=== PATIENT | male | born 1965 | race Native Hawaiian/Other Pacific Islander ===

== ENCOUNTER 2016-11-23 10:24 | Outpatient (CLI) | payer OTHER ==
[~2016-11-23 10:24] MED LIST: ASA LOW STR81 MG PO; CLOP75TA2 PO; CLOPIDOGREL75 MG PO; CRESTOR20 MG PO; EQ ASPIRIN325 M1 OR; EQ OMEPRAZOLE20 MG OR; IMDUR60 MG PO; LISI20TA11 PO; METF500T PO; METO25TA4 OR; METO50TA27 PO; METO50TA63 PO; NITROSTAT0.4 MG SL; RANI150T78 PO; RANO500T PO; TOPAMAX25 MG OR; TRAM50TA PO; XODOL OR
[2016-11-23 11:35] LABS: PLATELET COUNT 178 K/uL (142-355)
[2016-11-23 12:07] LABS: SODIUM 134 mmol/L (136-145)
== END 2016-11-23 19:13 | disposition home or self-care (01) ==
LOC: LABW 10:24
PROVIDERS: Internal Medicine
DX: E11.9 Type 2 diabetes mellitus without complications (principal); M25.519 Pain in unspecified shoulder; Z12.5 Encounter for screening for malignant neoplasm of prostate
CPT/HCPCS: 36415; 80053; 80061; 81000; 82043; 82570; 83036; 84153; 84443; 85027

== ENCOUNTER 2017-03-25 11:39 | Outpatient (CLI) | payer OTHER | END 2017-03-25 12:40 | disposition home or self-care (01) | LOC: RAD 11:39 | DX: M54.2 Cervicalgia (principal); M79.602 Pain in left arm; M79.601 Pain in right arm ==

== ENCOUNTER 2017-08-04 08:25 | Outpatient (CLI) | payer OTHER ==
[2017-08-04 08:54] LABS: PLATELET COUNT 177 K/uL (142-355)
[2017-08-04 09:18] LABS: PARTIAL THROMBOPLASTIN TIME 27.2 SECONDS (24.5-33.6)
[2017-08-04 09:25] LABS: POTASSIUM 3.9 mmol/L (3.6-5.2); SODIUM 134 mmol/L (136-145)
== END 2017-08-04 23:34 | disposition home or self-care (01) ==
LOC: LABW 08:25
PROVIDERS: Internal Medicine
DX: E11.9 Type 2 diabetes mellitus without complications (principal); Z01.818 Encounter for other preprocedural examination; Z79.899 Other long term (current) drug therapy
CPT/HCPCS: 36415; 80053; 80061; 81000; 83036; 84443; 85027; 85610; 85730

== ENCOUNTER 2017-08-28 07:41 | Outpatient (CLI) | payer OTHER | END 2017-08-28 20:22 | disposition home or self-care (01) | LOC: CT 07:41 | DX: R06.02 Shortness of breath (principal); R91.1 Solitary pulmonary nodule | CPT/HCPCS: 94664; Q9963 ==

== ENCOUNTER 2017-12-03 22:00 | Emergency (ER) | payer OTHER ==
[~2017-12-03] VITALS: Ht 182.9 cm; Wt 98.6 kg
[2017-12-03] MEDS ORDERED: GABA300C2 PO (22:25)
[2017-12-03] MEDS ORDERED: METFORMIN HCL500 M1 PO (22:25)
[2017-12-03] MEDS ORDERED: ASPIRIN 81 LOW81 MG PO (22:26)
[2017-12-03] MEDS ORDERED: BEVESPI AEROSPH1 AER IN (22:26)
[2017-12-03] MEDS ORDERED: PROAIR HFA IN (22:28)
[2017-12-04 01:52] VITALS: BP 148/60; TEMP 98.3
== END 2017-12-04 01:53 | disposition home or self-care (01) ==
LOC: ED 22:00
DX: L08.89 Other specified local infections of the skin and subcutaneous tissue (principal)
CPT/HCPCS: 99282

== ENCOUNTER 2019-02-20 09:00 | Outpatient (CLI) | payer OTHER ==
[~2019-02-20 09:00] MED LIST changes: +ASPIRIN 81 LOW81 MG PO; +BEVESPI AEROSPH1 AER IN; +GABA300C2 PO; +METFORMIN HCL500 M1 PO; +PROAIR HFA IN
== END 2019-02-20 22:15 | disposition home or self-care (01) ==
LOC: CT 09:00
DX: J44.1 Chronic obstructive pulmonary disease with (acute) exacerbation (principal)

== ENCOUNTER 2019-04-03 09:25 | Outpatient (CLI) | payer OTHER ==
[2019-04-03 09:53] LABS: PLATELET COUNT 181 K/uL (142-355)
[2019-04-03 10:18] LABS: POTASSIUM 3.9 mmol/L (3.6-5.2)
== END 2019-04-03 20:05 | disposition home or self-care (01) ==
LOC: LABW 09:25
PROVIDERS: Internal Medicine
DX: E11.9 Type 2 diabetes mellitus without complications (principal); Z12.5 Encounter for screening for malignant neoplasm of prostate; N40.0 Benign prostatic hyperplasia without lower urinary tract symptoms
CPT/HCPCS: 36415; 80053; 80061; 81000; 82043; 82570; 83036; 84153; 85027

== ENCOUNTER 2019-07-05 08:43 | Outpatient (CLI) | payer OTHER | END 2019-07-05 20:14 | disposition home or self-care (01) | LOC: RESP 08:43 | DX: J43.2 Centrilobular emphysema (principal) ==

== ENCOUNTER 2019-10-03 12:00 | Outpatient (CLI) | payer OTHER ==
[2019-10-03 12:16] LABS: PLATELET COUNT 161 K/uL (142-355)
[2019-10-03 12:31] LABS: POTASSIUM 3.8 mmol/L (3.6-5.2)
== END 2019-10-03 22:45 | disposition home or self-care (01) ==
LOC: LAB 12:00
PROVIDERS: Internal Medicine
DX: E11.9 Type 2 diabetes mellitus without complications (principal); I10 Essential (primary) hypertension
CPT/HCPCS: 80053; 83036; 84154; 84439; 84443; 85027

== ENCOUNTER 2020-01-06 13:20 | Emergency (ER) | payer OTHER ==
[~2020-01-06] VITALS: Ht 182.9 cm; Wt 101.6 kg
[2020-01-06 14:40] VITALS: BP 128/79; TEMP 98.9
== END 2020-01-06 14:43 | disposition home or self-care (01) ==
LOC: ED 13:20
DX: J06.9 Acute upper respiratory infection, unspecified (principal); Z03.818 Encounter for observation for suspected exposure to other biological agents ruled out; F17.210 Nicotine dependence, cigarettes, uncomplicated
CPT/HCPCS: 87635; 87651; 99283; U0002

== ENCOUNTER 2020-02-20 08:50 | Outpatient (CLI) | payer OTHER | END 2020-02-20 19:16 | disposition home or self-care (01) | LOC: CT 08:50 | DX: J43.2 Centrilobular emphysema (principal); Z87.891 Personal history of nicotine dependence | CPT/HCPCS: G0297-TC ==

== ENCOUNTER 2020-07-29 09:31 | Outpatient (CLI) | payer OTHER ==
[2020-07-29 10:27] LABS: PLATELET COUNT 203 K/uL (142-355)
== END 2020-07-29 21:39 | disposition home or self-care (01) ==
LOC: LABW 09:31
PROVIDERS: ATTEND Internal Medicine
DX: E11.9 Type 2 diabetes mellitus without complications (principal)
CPT/HCPCS: 36415; 80053; 80061; 81000; 82043; 82570; 83036; 84439; 84443; 85027

== ENCOUNTER 2022-04-09 10:12 | Outpatient (CLI) | payer OTHER ==
[2022-04-09 10:44] LABS: PLATELET COUNT 196 K/uL (142-355)
[2022-04-09 11:09] LABS: POTASSIUM 4.4 mmol/L (3.6-5.2)
== END 2022-04-09 21:16 | disposition home or self-care (01) ==
LOC: LABW 10:12
PROVIDERS: ATTEND Internal Medicine
DX: E11.9 Type 2 diabetes mellitus without complications (principal)
CPT/HCPCS: 36415; 80053; 80061; 81002; 82043; 83036; 84439; 84443; 85027

== ENCOUNTER 2022-05-17 09:06 | Outpatient (CLI) | payer OTHER | END 2022-05-17 18:55 | disposition home or self-care (01) | LOC: RESP 09:06 | PROVIDERS: ATTEND Internal Medicine | DX: J44.1 Chronic obstructive pulmonary disease with (acute) exacerbation (principal) | CPT/HCPCS: 82805 ==

== ENCOUNTER 2023-01-13 15:34 | Emergency (ER) | payer OTHER ==
[~2023-01-13] VITALS: Ht 182.9 cm; Wt 101.6 kg
[2023-01-13 15:53] VITALS: TEMP 97.9
[2023-01-13 17:12] LABS: PLATELET COUNT 211 K/uL (142-355)
[2023-01-13 17:22] LABS: POTASSIUM 3.4 mmol/L (3.6-5.2)
[2023-01-13 20:20] VITALS: BP 148/74
== END 2023-01-13 20:20 | disposition left against medical advice (07) ==
LOC: ED 15:34
PROVIDERS: Family Medicine
DX: J18.9 Pneumonia, unspecified organism (principal); J44.1 Chronic obstructive pulmonary disease with (acute) exacerbation; R06.00 Dyspnea, unspecified
CPT/HCPCS: 36415; 80053; 83605; 83880; 84484; 85027; 93005; 94664; 96361; 96365; 99284; J2930